=== PATIENT | female | born 1985 | race Caucasian/White ===

== ENCOUNTER 2019-07-20 18:26 | Emergency (ER) | payer OTHER ==
[~2019-07-20] VITALS: Ht 157.5 cm; Wt 72.6 kg
[2019-07-20] MEDS ORDERED: PRENATAL CAPLE1 EAC1 (18:54)
== END 2019-07-20 21:13 | disposition home or self-care (01) ==
LOC: ER 18:26
DX: O26.893 Other specified pregnancy related conditions, third trimester (principal); G51.0 Bell's palsy